=== PATIENT | female | born 1950 | race Caucasian/White ===

== ENCOUNTER → 2018-08-13 12:41 | Outpatient (CLI) | payer MEDICARE, OTHER, SELFPAY ==
[2018-08-05 14:09] VITALS: BMI 21.2
--- NOTE | 2018-08-13 12:43 | ECHOD_ITS ---
Reason For Study: MITRAL VALVE PROLAPSE Procedure This was a 2D Doppler, Color Flow transthoracic echocardiogram. Exam performed in department. Left Ventricle Normal LV size. Left ventricular systolic function is normal. The estimated ejection fraction is 65 %. Stage 1 diastolic dysfunction. No regional wall motion abnormalities noted. Right Ventricle Normal RV size. Normal systolic function. Mitral Valve Bileaflet diffuse mitral valve thickening. Mild focal mitral valve calcification of the anterior leaflet. Mild (1+) eccentric mitral valve insufficiency. Tricuspid Valve Normal tricuspid valve. Mild (1+) tricuspid valve insufficiency. Pulmonary artery systolic pressure is 28 mmHg. Aortic Valve Trisinus/trileaflet aortic valve. Mild (1+) eccentric aortic valve insufficiency. Pulmonic Valve Normal pulmonic valve. Great Vessels Normal aortic root. The pulmonary artery is normal size. Normal inferior vena cava. Pericardium/Pleural No pericardial effusion. MMode/2D Measurements & Calculations LVIDd: 4.4 cm IVSd: 0.83 cm Ao root diam: 3.2 cm LVIDs: 2.9 cm LVPWd: 0.77 cm RVDd: 3.3 cm FS: 35.0 % LAV(MOD-bp): 37.7 ml LVAd ap4: 27.2 cm2 SV(MOD-sp4): 51.1 ml LAV(MOD-bp) Indexed: 24.1 ml/m2 EDV(MOD-sp4): 79.0 ml LAV(MOD-sp2): 39.9 ml EDV(sp4-el): 81.5 ml LAV(MOD-sp4): 35.7 ml LVAs ap4: 14.2 cm2 ESV(MOD-sp4): 27.9 ml ESV(sp4-el): 28.3 ml EF(MOD-sp4): 64.7 % EF(sp4-el): 65.3 % SV(sp4-el): 53.2 ml LA dimension(2D): 3.4 cm LA A4 area: 15.7 cm2 RA A4 area: 13.3 cm2 Time Measurements MV dec time: 0.26 sec Doppler Measurements & Calculations MV E max og: 82.6 cm/sec Lat Peak E' Og: 7.8 cm/sec Med Peak E' Og: 8.0 cm/sec MV A max og: 105.8 cm/sec E/E' lat: 10.6 E/E' med: 10.3 MV E/A: 0.78 Ao V2 max: 164.9 cm/sec AI max og: 443.4 cm/sec LV V1 max: 152.8 cm/sec Ao max P.9 mmHg AI max P.6 mmHg LV V1 max P.3 mmHg AI dec slope: 227.4 cm/sec2 AI P1/2t: 571.0 msec PA V2 max: 103.2 cm/sec TR max og: 246.6 cm/sec TR max P.4 mmHg Interpretation Summary Normal LV size. Left ventricular systolic function is normal. The estimated ejection fraction is 65 %. Mild (1+) tricuspid valve insufficiency. Pulmonary artery systolic pressure is 28 mmHg. Stage 1 diastolic dysfunction. Mild (1+) eccentric mitral valve insufficiency. Mild (1+) eccentric aortic valve insufficiency. Ordering Physician: José Luis Paul Referring Physician: JENNI COMBS Performed By: Cary Voss RDCS
== END ==
PROVIDERS: Family Provider Family Medicine; PCP Family Medicine; Referring Provider Internal Medicine Cardiovascular Disease; Visit Provider Internal Medicine Cardiovascular Disease
DX: I34.0 Nonrheumatic mitral (valve) insufficiency (principal)
CPT/HCPCS: 93306

== ENCOUNTER 2021-09-25 07:46 | Outpatient (CLI) | payer MEDICARE, OTHER, SELFPAY ==
--- NOTE | 2021-09-25 07:49 | ECHOD_ITS ---
Reason For Study: MURMUR Procedure This was a 2D Doppler, Color Flow transthoracic echocardiogram. Exam performed in department. Left Ventricle Normal LV size. Left ventricular systolic function is normal. The estimated ejection fraction is 60 %. Stage 1 diastolic dysfunction. No regional wall motion abnormalities noted. Right Ventricle Normal RV size. Normal systolic function. Atria Normal left atrium. Normal right atrium. Mitral Valve Mild focal mitral valve calcification, bileaflet. Mild-Moderate (1-2+) eccentric mitral valve insufficiency. Tricuspid Valve Normal tricuspid valve. Mild (1+) tricuspid valve insufficiency. Pulmonary artery systolic pressure is 28 mmHg. Aortic Valve Trisinus/trileaflet aortic valve. Mild (1+) aortic valve insufficiency. Pulmonic Valve Normal pulmonic valve. Great Vessels Normal aortic root. The pulmonary artery is normal size. Normal inferior vena cava. Pericardium/Pleural No pericardial effusion. MMode/2D Measurements & Calculations LVIDd: 4.2 cm IVSd: 0.99 cm Ao root diam: 3.3 cm LVIDs: 2.8 cm LVPWd: 1.0 cm RVDd: 3.1 cm FS: 32.8 % LAV(MOD-bp): 34.8 ml LVAd ap4: 23.7 cm2 SV(MOD-sp4): 43.3 ml LAV(MOD-bp) Indexed: 22.5 ml/m2 LVLd ap4: 6.7 cm LAV(MOD-sp2): 32.0 ml EDV(MOD-sp4): 69.9 ml LAV(MOD-sp4): 36.5 ml EDV(sp4-el): 71.1 ml LVAs ap4: 13.3 cm2 LVLs ap4: 5.6 cm ESV(MOD-sp4): 26.6 ml ESV(sp4-el): 26.7 ml EF(MOD-sp4): 61.9 % EF(sp4-el): 62.4 % SV(sp4-el): 44.4 ml LA A4 area: 15.5 cm2 LA dimension(2D): 3.2 cm RA A4 area: 12.5 cm2 Time Measurements MV dec time: 0.24 sec Doppler Measurements & Calculations MV E max og: 93.4 cm/sec Lat Peak E' Og: 7.0 cm/sec Med Peak E' Og: 8.5 cm/sec MV A max og: 108.5 cm/sec E/E' lat: 13.3 E/E' med: 11.0 MV E/A: 0.86 Ao V2 max: 150.3 cm/sec AI max og: 341.3 cm/sec LV V1 max: 150.6 cm/sec Ao max P.0 mmHg AI max P.6 mmHg LV V1 max P.1 mmHg AI dec slope: 213.5 cm/sec2 AI P1/2t: 468.2 msec PA V2 max: 105.0 cm/sec TR max og: 244.6 cm/sec TR max P.9 mmHg ECHO/Echo Complete Interpretation Summary Normal LV size. Left ventricular systolic function is normal. The estimated ejection fraction is 60 %. Stage 1 diastolic dysfunction. Mild (1+) aortic valve insufficiency. Pulmonary artery systolic pressure is 28 mmHg. Ordering Physician: Charlotte Sanchez/José Luis Paul Referring Physician: ERNIE JIMENEZ Performed By: Cary Voss RDCS
== END 2021-09-25 23:59 | disposition home or self-care (01) ==
LOC: CVS 07:47
PROVIDERS: PCP Nurse Practitioner Primary Care; Referring Provider Physician Assistant Medical; Visit Provider Physician Assistant Medical
DX: I35.1 Nonrheumatic aortic (valve) insufficiency (principal); R01.1 Cardiac murmur, unspecified
CPT/HCPCS: 93306

== ENCOUNTER → 2022-10-09 | Outpatient (CLI) | payer SELFPAY ==
--- NOTE | 2022-10-09 12:32 | CT_ITS ---
INDICATION: HTN, HLD EXAMINATION: CT CHEST WITHOUT CONTRAST - CT Chest W/O Contrast Injection TECHNIQUE: Helically acquired images were obtained of the chest. A radiation dose optimization technique was used for this scan. IV Contrast dosage and agent: None. Cardiac over read examination only. COMPARISON: None. FINDINGS: LUNGS, PLEURA AND LARGE AIRWAYS: No masses, consolidation, or edema. No pleural effusion or thickening. No pneumothorax. THYROID: No thyroid lesions. HEART AND PERICARDIUM: Heart size is normal. No pericardial effusion. CORONARY ARTERIES: Coronary artery calcification is seen. VESSELS: Atherosclerotic plaque formation of the descending thoracic aorta. MEDIASTINUM AND JANET: Small benign appearing mediastinal lymph nodes. Esophagus is unremarkable. No hiatal hernia. UPPER ABDOMEN: No acute pathology. BONES: No suspicious lytic or blastic abnormality. CT/Limited Chest CT Cardiac Only IMPRESSION: Coronary artery calcification. Tracheal and bronchial calcification. Electronically Signed: Shemar Jimenez MD at 11:10 EDT ,
--- NOTE | 2022-10-17 15:56 | CA.SCORE ---
Calcium Scoring Date of Study:: 10/09/22 Coronary Calcium Scoring: High-resolution Computed Tomographic imaging of the chest was performed on [10/09/2022], with particular attention paid to the coronary arteries. Images from the examination were analyzed for the presence and extent of coronary artery calcification , using coronary calcium quantification software. The patient tolerated the procedure well and there were no complications. The results of the coronary calcification analysis are provided below. Findings Coronary Artery Left Main (LM): 382 Left Anterior Descending (LAD): 0 Left Circumflex (LCX): 0 Right Coronary Artery (RCA): 0 Total Agatston Score: 382 Percentile Rankin-90 Calcium Scoring Interpretation: Different methods to categorize the overall amount of coronary plaque. Overall amount CAC SIS Visual of coronary plaque P1 Mild -100 <2 1-2 vessels with mild amount of plaque P2 Moderate 101-300 3-4 1-2 vessels with moderate amount, 3 vessels with mild amount of plaque P3 Severe 301-999 5-7 3 vessels with moderate amount, 1 vessel with severe amount of plaque P4 Extensive >1000 >8 2-3 vessels with severe amount of plaque Calcium Score: Severe: 3 vessels w/moderate amount, 1 vessel w/severe amt of plaque Conclusion: Above suggestive of 1 vessel with severe amount of plaque noted in the left main coronary artery
== END | disposition home or self-care (01) ==
PROVIDERS: PCP Nurse Practitioner Primary Care; Referring Provider Internal Medicine Cardiovascular Disease; Visit Provider Internal Medicine Cardiovascular Disease
DX: I10 Essential (primary) hypertension (principal); E78.00 Pure hypercholesterolemia, unspecified
CPT/HCPCS: 75571; 76380

== ENCOUNTER → 2022-10-26 | Outpatient (CLI) | payer MEDICARE, OTHER, SELFPAY ==
--- NOTE | 2022-10-26 18:07 | STRESSREP ---
Stress Test Report Exercise myocardial perfusion stress test. 72-year-old lady with a history of coronary artery calcification Stress protocol: Resting EKG demonstrates normal sinus rhythm with a rate of 63 bpm resting blood pressure is 112/62 mmHg. The patient exercised according to the regular Pierre protocol for a total duration of 9 minutes attaining a maximum heart rate of 146 bpm which was 100% of maximum predicted heart rate; the maximum workload was 10.1 metabolic equivalents. At rest there were no ST or T wave changes noted to suggest ischemia and at peak exercise upsloping ST changes only were noted which did not meet the criteria for ischemia. 1 3 beat run of wide-complex tachycardia was noted which self terminated. No clinical angina was noted the test was terminated due to the target heart rate being achieved/fatigue. The peak blood pressure was 142/60 mmHg. Rate-pressure product was 18,400. Myocardial perfusion protocol. 11.5 mCi of technetium 99m sestamibi was injected at rest. The patient exercised according to regular Pierre protocol for total duration of 9 minutes and at peak exercise 33.6 mCi of technetium 99m sestamibi was injected stress images were obtained stress and rest images were reconstructed in comparing the short axis vertical long and horizontal long axis. Gated images were also obtained. Perfusion SPECT analysis: Review of the stress images demonstrate normal uptake of tracer noted in all areas of the myocardium. The resting images similarly demonstrate normal uptake of tracer noted in all areas of the myocardium. No areas of reversibility are noted to suggest ischemia no previous infarct was noted. Gated SPECT analysis: The gated ejection fraction is 83%. Conclusion: Normal exercise myocardial perfusion stress test at a high workload Preserved ejection fraction.
== END | disposition home or self-care (01) ==
PROVIDERS: PCP Nurse Practitioner Primary Care; Referring Provider Internal Medicine Cardiovascular Disease; Visit Provider Internal Medicine Cardiovascular Disease
DX: I25.10 Atherosclerotic heart disease of native coronary artery without angina pectoris (principal); I34.0 Nonrheumatic mitral (valve) insufficiency; I35.1 Nonrheumatic aortic (valve) insufficiency; I10 Essential (primary) hypertension; E78.00 Pure hypercholesterolemia, unspecified
CPT/HCPCS: 78452; 93017; A9500; A4216